=== PATIENT | female | born 1995 | race Caucasian/White ===

== ENCOUNTER 2016-09-17 14:01 | Emergency (ER) | payer OTHER ==
[2016-09-17 14:52] VITALS: BP 121/80
--- NOTE | 2016-09-17 15:22 | UC ---
Skin Complaint HPI - History of Current Complaint Chief Complaint: UCUpperExtremity Time Seen by Provider: 09/17/16 15:08 Stated Complaint: SWOLLEN WRIST AND POSSIBLE ALLERGRIC REACTION Hx Obtained From: Patient Hx Last Menstrual Period: 08/30/16 ?: No Onset/Duration: Gradual Onset - patient started with itchy rash 2 days ago. yesterday her hands were swollen but resolved after taking Benadryl, today L wrist feels swollen and painful. Rash is resolving slightly. itch well controlled by Benadryl. pt denies new meds, foods, personal care items. no close contacts with same symps Timing: Constant Onset Severity: Mild Current Severity: Moderate Location: Diffuse Character: Pruritus, Redness, Raised Aggravating: Touch Alleviating: Antihistamines Associated Signs & Symptoms: Negative: Nausea, Vomiting, Fever, Chills - Allergy/Home Medications Allergies/Adverse Reactions: Allergies Allergy/AdvReac Type Severity Reaction Status Date / Time No Known Allergies Allergy Verified 09/17/16 14:52 Review of Systems Constitutional: Negative Skin: Rash Eyes: Negative Respiratory: Negative Cardiovascular: Negative Musculoskeletal: Other: - L wrist pain Neurological: Negative Psychological: Negative All Other Systems Reviewed And Are Negative: Yes PMH/Surg Hx/FS Hx/Imm Hx Previously Healthy: Yes Endocrine History Of: Denies: Diabetes Cardiovascular History Of: Denies: Hypertension, Pacemaker/ICD Respiratory History Of: Denies: Asthma Neurological History Of: Reports: Migraine - infrequent Psychological History Of: Reports: Anxiety - on meds, Depression - on meds - Surgical History Surgical History: Yes Surgery Procedure, Year, and Place: 05/2013 RT W[facility]ST SURGERY FOR [facility]- [facility] - Social History Occupation: Employed Part-time - [employer] Alcohol Use: None Substance Use Type: None Substance Use Comment - Amount & Last Used: half-caff Smoking Status (MU): Never Smoked Tobacco Have You Smoked in the Last Year: No Physical Exam Triage Information Reviewed: Yes Appearance: Well-Appearing, No Pain Distress, Well-Nourished Vital Signs: Initial Vital Signs Temp 97.6 F 09/17/16 14:47 Pulse 96 09/17/16 14:47 Resp 20 09/17/16 14:47 BP 121/80 09/17/16 14:47 Pulse Ox 100 09/17/16 14:47 Vital Signs Reviewed: Yes Eyes: Positive: Conjunctiva Clear Respiratory Exam: Normal Respiratory: Positive: Lungs clear Cardiovascular Exam: Normal Cardiovascular: Positive: RRR Musculoskeletal: Positive: Other: - minor swelling L ulna wrist area, tender. Neurological Exam: Normal Neurological: Positive: Alert Psychological Exam: Normal Skin: Positive: rashes - scattered, slightly red and slightly raised, irreg shaped rash abd, flanks, arms, thighs, no particualr pattern. no other joint swelling or pain Course/Dx - Differential Diagnoses - Skin Complaint Differential Diagnoses: Allergic Reaction, Contact Dermatitis, Drug Rash, Local Allergic Reaction - Diagnoses Provider Diagnoses: rash Discharge - Discharge Plan Condition: Stable Disposition: HOME Prescriptions: Methylprednisolone [Medrol Dosepak 4 MG*] 0 mg PO .SEE SEAMUS INSTRUCTION #1 Methylprednisolone [Medrol Dosepak 4 MG*] 0 mg PO .SEE SEAMUS INSTRUCTION #1 pkt Patient Education Materials: Acute Rash (ED) Referrals: Brando Ferreira MD [Primary Care Provider] - 2 Days Additional Instructions: start medrol dose pack as directed use benadryl from home as directed return here or report to ER if symptoms worsen at any time
== END 2016-09-17 15:42 | disposition home or self-care (01) ==
LOC: UCEAST 14:01
DX: R21 Rash and other nonspecific skin eruption (principal); G43.909 Migraine, unspecified, not intractable, without status migrainosus; F41.9 Anxiety disorder, unspecified; F32.9 Major depressive disorder, single episode, unspecified
CPT/HCPCS: 99212; G0463

== ENCOUNTER 2016-11-17 12:38 | Emergency (ER) | payer OTHER ==
[2016-11-17 12:45] VITALS: BP 128/81
--- NOTE | 2016-11-17 13:53 | RAD ---
Indication: Right forearm injury. 2 views of the right forearm demonstrates no fracture. No other bone or joint abnormality is identified. IMPRESSION: No fracture of the right forearm is noted.
[2016-11-17] MEDS ORDERED: Naproxen TAB* 250 MG PO ONE (14:20)
--- NOTE | 2016-11-17 14:21 | ED ---
Upper Extremity Pain - History of Current Complaint Chief Complaint: EDExtremityUpper Stated Complaint: FELL,RT ARM PAIN Time Seen by Provider: 11/17/16 12:44 Hx Last Menstrual Period: 08/30/16 - Allergies/Home Medications Allergies/Adverse Reactions: Allergies Allergy/AdvReac Type Severity Reaction Status Date / Time No Known Allergies Allergy Verified 09/17/16 14:52 PMH/Surg Hx/FS Hx/Imm Hx Endocrine/Hematology History: Reports: Hx Anemia - in past Denies: Hx Diabetes Cardiovascular History: Denies: Hx Hypertension, Hx Pacemaker/ICD Respiratory History: Denies: Hx Asthma GI History: Reports: Hx Gastroesophageal Reflux Disease - pantoproprazole Musculoskeletal History: Reports: Hx Tendonitis - right wrist in past Sensory History: Denies: Hx Contacts or Glasses, Hx Hearing Aid Opthamlomology History: Denies: Hx Contacts or Glasses Neurological History: Reports: Hx Migraine - infrequent Psychiatric History: Reports: Hx Anxiety - on meds, Hx Depression - on meds, Hx Panic Disorder - ANXIETY - Surgical History Surgery Procedure, Year, and Place: 05/2013 RT WRIST SURGERY FOR [facility]- [facility] Hx Anesthesia Reactions: No Infectious Disease History: No Infectious Disease History: Denies: Traveled Outside the [place] in Last 30 Days - Social History Alcohol Use: None Substance Use Type: Reports: None Substance Use Comment - Amount & Last Used: half-caff Smoking Status (MU): Never Smoked Tobacco Have You Smoked in the Last Year: No Physical Exam Vital Signs On Initial Exam: Initial Vitals Temp Pulse Resp Pulse Ox 96.7 F 86 20 100 11/17/16 12:40 11/17/16 12:40 11/17/16 12:40 11/17/16 12:40 Diagnostics - Vital Signs Vital Signs Temp Pulse Resp BP Pulse Ox 11/17/16 12:42 98.2 F 89 20 128/81 100 11/17/16 12:40 96.7 F 86 20 100 - Laboratory Lab Statement: Any lab studies that have been ordered have been reviewed, and results considered in the medical decision making process. - Radiology right forearm Xray Interpretation: No Acute Changes - No fracture of the right forearm is noted. Radiology Interpretation Completed By: Radiologist
== END 2016-11-17 14:45 | disposition home or self-care (01) ==
LOC: ED 12:38
DX: M79.601 Pain in right arm (principal); W19.XXXA Unspecified fall, initial encounter
CPT/HCPCS: 99282; A9270-GY